=== PATIENT | male | born 1935 | race Caucasian/White ===

== ENCOUNTER 2018-09-27 18:09 | Observation (INO) ==
--- NOTE | 2018-09-27 18:54 | PROVIDER DOCUMENTATION ---
HPI-Male Problem - General Chief Complaint: Male Stated Complaint: MALE Time Seen by Provider: 09/27/18 18:48 Source: patient Allergies/Adverse Reactions: Patient Allergies Allergy/AdvReac Type Severity Reaction Status Date / Time diphenhydramine Allergy SWELLING Verified 09/27/18 18:21 [From Benadryl] Sulfa (Sulfonamide Allergy SWELLING Verified 09/27/18 18:21 Antibiotics) sulfamethoxazole Allergy SWELLING Verified 09/27/18 18:21 [From Bactrim] trimethoprim [From Bactrim] Allergy SWELLING Verified 09/27/18 18:21 Home Medications: Home Medication List Medication Instructions Recorded Confirmed Last Taken Type Amlodipine [Norvasc] 5 mg PO QHS 01/20/18 03/17/18 03/16/18 08:00 History Glyburide 2.5 mg PO DAILY 01/20/18 03/17/18 03/16/18 08:00 History Levothyroxine [Synthroid] 75 microgm PO DAILY 01/20/18 03/17/18 03/16/18 08:00 History SIMVAstatin [Zocor] 40 mg PO QHS 01/20/18 03/17/18 03/15/18 17:30 History Saxagliptin [Onglyza] 5 mg PO DAILY 01/20/18 03/17/18 03/16/18 08:00 History Valsartan [Diovan] 320 mg PO DAILY 01/20/18 03/17/18 03/16/18 08:00 History Tizanidine [Zanaflex] 4 mg PO DAILY PRN 03/16/18 03/17/18 03/15/18 20:00 History Hydrocodone/APAP 7.5 mg/325 mg 1 ea PO Q6H PRN PRN #15 tab 03/17/18 Unknown Rx [[place]-7.5] - History of Present Illness-Male Nature of Presenting Problem: 82 YOM PRESENTS WITH MULTIPLE COMPLAINTS URINARY RETENTION, LEG WEAKNESS BILATERALLY THAT HAS GOTTEN WORSE. HE DID HAVE AN EPIDURAL BLOCK TODAY BUT IT HAS NOT IMPROVED. Location of Complaint: reports: suprapubic Radiation: reports: none Quality of Pain: reports: fullness Severity in ED: reports: moderate Onset/Duration: reports: 24 hours ago Timing: reports: still present Context/Activities at Onset: reports: none Urinary Symptoms: reports: retention Sexual intercourse history: reports: Not Active Associated Symptoms: reports: none Associated Symptoms: reports: trouble walking Similar Symptoms Previously?: No Recently seen or treated by another doctor?: No Review of Systems - Adult - REVIEW OF SYSTEMS - ADULT Constitutional: reports: no symptoms reported. denies: see HPI, chills, fever, fatique, night sweats, weight gain, weight loss, other Eyes: reports: no symptoms reported. denies: see HPI, discharge, dry eyes, decreased vision, blurred vision, double vision, eye pain, redness, other Ears, Nose, Mouth & Throat: reports: no symptoms reported. denies: see HPI, ear discharge, ear pain, hearing loss, tinnitus, epistaxis, sinus problem, nose pain, loose teeth, mouth/dental pain, mouth swelling, hoarseness, throat pain, throat swelling, other Cardiovascular: reports: no symptoms reported. denies: see HPI, chest pain, edema, heart murmur, irregular heart rate, orthopnea, palpitations, poor circulation, PND, syncope, other Respiratory: reports: no symptoms reported. denies: see HPI, chronic cough, cough, dyspnea on exertion, excessive sputum production, hemoptysis, pleurisy, shortness of breath, wheezing, other Gastrointestinal: reports: no symptoms reported. denies: see HPI, abdominal pain, hematemesis, constipation, diarrhea, difficulty swallowing, frequent heartburn, nausea, poor appetite, rectal bleeding, vomiting, other Genitourinary: reports: urinary retention. denies: no symptoms reported, see HPI, dysuria, discharge, frequency, flank pain, frequent UTI's, hematuria, hesitency, incontinence, urgency, other Musculoskeletal: reports: muscle weakness. denies: no symptoms reported, see HPI, bone pain, back pain, frequent leg cramps, joint pain, joint swelling, muscle aches, neck pain, other Integumentary: reports: no symptoms reported. denies: see HPI, hives, hair loss, itching, mole changes, nail changes, rash, skin sores/ulcer, skin thickening, other Neurological: reports: no symptoms reported. denies: see HPI, ataxia, dizziness/vertigo, headache/migraines, loss of balance, numbness, paresthesia, seizure, slurred speech, syncope, tremors, other Psychiatric: reports: no symptoms reported. denies: see HPI, anxiety, anti- depressant use, alcohol/drug dependence, depression, emotional problems, insomnia, panic attacks, suicidal thoughts, other Endocrine: reports: no symptoms reported. denies: see HPI, change in skin pigment, excessive sweating, goiter, cold intolerance, heat intolerance, incr eased hunger, increased thirst, polyuria, other Hematologic/Lymphatic: reports: no symptoms reported. denies: see HPI, blood clots, easy bruising, low blood count, lymphedema, prolonged bleeding, swollen lymph nodes, transfusions, other Allergic/Immunologic: reports: no symptoms reported. denies: see HPI, allergic reactions, allergic rhinitis, asthma, eczema, food allergy, frequent infections, hay fever, hives, positive PPD, urticaria, other Past History - Adult - PAST MEDICAL HISTORY-ADULT Review of Records: reports: Old Records Reviewed, Nursing Assessment Review, Social history reviewed & non-contributory. Physical Exam-General - PHYSICAL EXAM-ADULT Initial Vital Signs Reviewed: Yes - CONSTITUTIONAL General Appearance: appears well, alert, no apparent distress - EYES Eyes: PERRL/EOMI - HEAD, EARS, NOSE, MOUTH & THROAT HENMT: normocephalic/atraumatic, moist mucous membranes, normal ENT inspection - NECK Neck: non-tender, full range of motion, supple - RESPIRATORY Respiratory: chest non-tender, lungs clear, normal breath sounds, no pleuratic chest pain, no respiratory distress, no accessory muscle use - CARDIOVASCULAR Cardiovascular: normal peripheral pulses, regular rate, rhythm, no edema, no gallop, no JVD, no murmur - GASTROINTESTINAL (ABDOMEN) Abdominal Exam: normal bowel sounds, non tender, soft - LYMPHATIC Lymphatic: no adenopathy - MUSCULOSKELETAL Back Exam: normal inspection, no CVA tenderness, no vertebral tenderness Extremity: non-tender. negative: normal range of motion, normal gait Peripheral Pulses: dorsalis-pedis (R): 2+, dorsalis-pedis (L): 2+ - SKIN Integumentary: normal color, normal turgor, warm/dry - NEUROLOGIC Neurologic: grossly normal - PSYCHIATRIC Psych/Mental Status: normal mood/affect, oriented x 3 Progress - PLAN OF CARE/RESULTS Progress/Plan/Lab Results: Vital Signs - 8 hr 09/27/18 18:17 Temperature 97.8 F Pulse Rate 103 H Respiratory Rate 16 Blood Pressure 113/67 O2 Sat by Pulse Oximetry 97 Laboratory Results - last 24 hr 09/27/18 09/27/18 09/27/18 19:00 20:11 20:11 WBC 4.48 L RBC 4.31 L Hgb 13.1 L Hct 36.2 L MCV 84.0 MCH 30.4 MCHC 36.2 RDW Std Deviation 13.6 Plt Count 170 MPV 10.2 Immature Gran % (Auto) 0.9 H Neut % (Auto) 93.5 H Lymph % (Auto) 3.8 L [place] % (Auto) 1.6 L Eos % (Auto) 0.2 Baso % (Auto) 0.0 Immature Gran # (Auto) 0.04 Neut # (Auto) 4.19 Lymph # (Auto) 0.17 L [place] # (Auto) 0.07 L Eos # (Auto) 0.01 Baso # (Auto) 0.00 Sodium 131 L Potassium 4.9 Chloride 98 Carbon Dioxide 21 L Anion Gap 12 BUN 21 Creatinine 0.8 Estimated GFR/1.73 m2 > 60 BUN/Creatinine Ratio 26 Glucose 228 H Calculated Osmolality 273 Calcium 8.4 L Urine Source CATH Urine Color YELLOW Urine Clarity VERY CLOUDY A Urine pH 5.0 Ur Specific [place] 1.020 Urine Protein 2+(100 mg/dL) A Urine Ketones TRACE Urine Blood 4+ Urine Nitrite NEGATIVE Urine Bilirubin NEGATIVE Urine Urobilinogen NORMAL Urine Microscopic RBC 10-20 A Urine WBC 1+ A Urine Microscopic WBC <10 Ur Epithelial Cells <10 Urine Crystals NONE SEEN Small Round Cells TRANSITIONAL PRESENT Urine Bacteria NEGATIVE Urine Casts NONE SEEN Urine Yeast NONE SEEN Urine Glucose TRACE(50 mg/dL) A Orders Category Date Time Status Ambulate Patient-Not Phys Thx ORDERED Care 09/27/18 20:53 Active BMP [BASIC METABOLIC PANEL] [CHEM] Stat Lab 09/27/18 20:11 Completed CBC WITH ELECTRONIC DIFF [HEME] Stat Lab 09/27/18 20:11 Completed UA NIMS W/REFLEX CULT PL [URINALYSIS] Stat Lab 09/27/18 19:00 Completed URINE CULTURE [RM] Routine Lab 09/27/18 19:35 Ordered Result Diagrams: 09/27/18 20:11 09/27/18 20:11 - CONSULTS/PCP/HOSPITALIST Notification #1 *Consult/PCP/Hospitalist*: DR CHEATAM Time Discussed: 21:16 Consult Disposition: Admit Departure - Departure Date of Disposition Decision: 09/27/18 Time of Disposition Decision: 21:16 DIAGNOSIS: Hyponatremia, Urinary retention Disposition: ADMITTED INPATIENT 09 Certified Medical Emergency: Emergent Condition: Stable Referrals and Follow-Ups: Kyler Ybarra MD [Primary Care Provider] - - Critical Care Note This patient required my direct & personal management of CC.: No Attestation - Physician/ NEELAM Attestation Patient care was provided by Advanced Practice Provider:: Yes Advanced Practice Provider:: Jessy Glass Advanced Practice Provider documentation review:: The Mid-level provider documentation, treatment plan and medical decision making was reviewed by the physician who agrees with all treatment and medical decision making by the MLP. The physician spent face to face time with patient:: No Advanced Practice Provider documentation review:: Supervising physician onsite and consulted in the evaluation and care of this patient. The physician did not have a face to face encounter with the patient.
[2018-09-27 19:17] LABS: BILIRUBIN URINE NEGATIVE (NEGATIVE)
[2018-09-27 19:18] LABS: BLOOD URINE 4+ (NEGATIVE); CLARITY VERY CLOUDY (CLEAR); COLOR YELLOW; KETONE URINE TRACE mg/dL (NEGATIVE); LEUKOCYTES URINE 1+ (NEGATIVE); NITRITE URINE NEGATIVE (NEGATIVE); PROTEIN URINE 2+(100 mg/dL) mg/dL (NEGATIVE); UROBILINOGEN URINE NORMAL
[2018-09-27 19:34] LABS: URINE SOURCE CATH
[2018-09-27 19:35] LABS: URINE BACTERIA NEGATIVE /HFP; URINE CAST NONE SEEN /LPF; URINE CRYSTAL NONE SEEN /HPF; URINE EPITHELIAL CELLS <10 /HPF (<10); URINE SMALL ROUND CELLS TRANSITIONAL PRESENT; URINE WBC <10 /HPF (<10); URINE YEAST NONE SEEN /HPF
[2018-09-27 20:18] LABS: EOS# 0.01 X1000 (0.0-0.7); EOS% 0.2 % (0.0-10.0); HEMATOCRIT 36.2 % (42.0-52.0); HEMOGLOBIN 13.1 g/dL (14.0-18.0); IMM GRAN# 0.04 X1000 (0.0-0.04); IMM GRAN% 0.9 % (0.0-0.5); LYMPH# 0.17 X1000 (1.2-3.4); LYMPH% 3.8 % (20.5-51.1); MCH 30.4 PG (27-31); MCHC 36.2 g/dL (33-37); MONO# 0.07 X1000 (0.11-0.59); MONO% 1.6 % (1.7-9.3); MPV 10.2 FL (7.4-10.4); NEUT# 4.19 X1000 (1.4-6.5); NEUT% 93.5 % (42.2-75.2); PLT 170 X1000 (130-400); RBC 4.31 XMIL (4.7-6.1); RDW 13.6 % (11.5-14.5); WBC 4.48 X1000 (4.8-10.8)
[2018-09-27 20:32] LABS: AGAP 12; BUN 21 mg/dL (8-22); CALCIUM 8.4 mg/dL (8.8-10.2); CHLORIDE 98 mmol/L (98-107); COSMO 273; CREATININE 0.8 mg/dL (0.7-1.2); ESTIMATED GFR > 60; GLUCOSE 228 mg/dL (70-104); POTASSIUM 4.9 mmol/L (3.5-5.1); SODIUM 131 mmol/L (136-145); TCO2 21 mmol/L (25-35)
[2018-09-27] MEDS ORDERED: NS 1,000 ML IV ONE (21:17)
[2018-09-28] MEDS: HUMALOG (PARKWAY) SUBQ SCH ×4 (07:00→21:49)
[2018-09-28 07:55] LABS: HEMOGLOBIN 12.7 g/dL (14.0-18.0); MCH 29.7 PG (27-31); MCHC 35.3 g/dL (33-37); MCV 84.3 FL (81-99); MPV 10.6 FL (7.4-10.4); RBC 4.27 XMIL (4.7-6.1); RDW 13.4 % (11.5-14.5); WBC 4.41 X1000 (4.8-10.8)
[2018-09-28] MEDS ORDERED: ZOFRAN IV PRN (08:26)
[2018-09-28] MEDS ORDERED: TYLENOL PO PRN (08:26)
[2018-09-28 08:31] LABS: AGAP 10; ALBUMIN 3.5 g/dL (3.5-5.0); ALKALINE PHOSPHATASE 63 U/L (32-122); BUN 18 mg/dL (8-22); CALCIUM 8.4 mg/dL (8.8-10.2); CHLORIDE 102 mmol/L (98-107); COSMO 275; CREATININE 0.6 mg/dL (0.7-1.2); ESTIMATED GFR > 60; GLUCOSE 161 mg/dL (70-104); GOT 12 U/L (10-34); GPT 8 U/L (10-44); MAGNESIUM 2.2 mg/dL (1.5-2.7); POTASSIUM 4.8 mmol/L (3.5-5.1); SODIUM 135 mmol/L (136-145); TCO2 22 mmol/L (25-35); TOTAL PROTEIN 5.5 g/dL (6.3-8.3)
[2018-09-28] MEDS ORDERED: NORVASC PO SCH (09:00)
[2018-09-28] MEDS: ROCEPHIN 1 GM in NS 50 ML IV SCH (09:29)
[2018-09-28] MEDS: ONGLYZA PO SCH (09:30)
[2018-09-28] MEDS: DIABETA PO SCH (09:31)
--- NOTE | 2018-09-28 11:03 | HISTORY AND PHYSICAL ---
CHIEF COMPLAINT: Can't use legs and can't urinate. HISTORY OF PRESENT ILLNESS: Mr. Khan is an 82-year-old male who carries a past medical history of type 2 diabetes, hyperlipidemia, hypertension, skin cancer, CVA, arthritis, and bladder cancer status post chemotherapy and radiation with Dr. Arnett, and transurethral resection of the bladder tumor, 2 to 5 cm in size by Dr. Elizabeth, as well as urethral dilatation. He reports over the last week he has been unable to use his legs, but before that, he continued to get weak over the past several weeks. He was walking with a walker. He is now unable to ambulate even with a walker. He has had a difficult time voiding over the past 2 to 3 weeks. Yesterday, he could not void on his own at all. He states he could feel the urge. He would stand there for 10 to 15 minutes. He could feel it start to release, and then just before it would come out, it would go back down again. The only relief he got was when he came to the ER, and they placed a Long catheter. He was found to be mildly hyponatremic with hematuria. He was initiated on IV fluids and IV antibiotics which we will continue, and check a CT of the abdomen and pelvis to see if the patient needs to be transported across town for neurology consult. PAST MEDICAL HISTORY: 1. Bladder cancer status post cystoscopy with urethral dilatation and transurethral resection of a bladder tumor by Dr. Elizabeth x2. 2. Arthritis. 3. Type 2 diabetes. 4. Hyperlipidemia. 5. Hypertension. 6. History of skin cancer. 7. History of CVA. PAST SURGICAL HISTORY: 1. Knee surgery. 2. Port placement. 3. Transurethral resection of bladder tumor and cystoscopy with urethral dilatation performed by Dr. Elizabeth x2. HOME MEDICATIONS: 1. Diovan 320 mg p.o. daily. 2. Norvasc 5 mg p.o. daily. 3. Glyburide 2.5 mg p.o. b.i.d. 4. Onglyza 5 mg p.o. daily. ALLERGIES: Benadryl causes swelling. Sulfa swelling. Bactrim swelling. FAMILY HISTORY: No malignancy or kidney stones. SOCIAL HISTORY: Former smoker, quit 30 years ago. No alcohol or illicit drug use. REVIEW OF SYSTEMS: Twelve-point review of systems complete and negative. The patient denies any headache, fever, chills, chest pain, shortness of breath, nausea, vomiting, or diarrhea. Pertinent positives per HPI. PHYSICAL EXAMINATION: VITAL SIGNS: Temperature is 98.7 degrees, heart rate 70, respirations 18, blood pressure 144/66, and O2 is 98% on room air. GENERAL: Mr. hKan is an 82-year-old male who is sitting up in the bed reading a book in no acute distress. HEENT: Atraumatic, normocephalic. PERRLA. Neck is supple. Trachea midline. CARDIOVASCULAR: S1, S2 appreciated. No murmurs, gallops, or rubs noted. RESPIRATORY: Lung sounds clear bilaterally. GI: Soft, nontender, and nondistended. Positive bowel sounds 4 quads. GENITOURINARY: Long. EXTREMITIES: Lower extremity is negative for edema. NEUROLOGIC: No focal deficits noted. DIAGNOSTIC DATA: Abdomen and pelvis CT currently pending. LABORATORY DATA: White count 4, hemoglobin and hematocrit 12 and 36, platelet count 179,000. Sodium initially 131, increased to 135, potassium 4.8, BUN 18, creatinine 0.6. Blood glucose is 161, magnesium 2.2. Urinalysis was negative for bacteria, negative for nitrates, 4+ blood, and 2+ protein. ASSESSMENT AND PLAN: 1. Urinary retention. The patient has had a dilatation in the past with Dr. Elizabeth. We will check a CT of the abdomen and pelvis and see if the patient needs to be transferred to [facility] for a urology consult. 2. Hyponatremia, improved with IV fluids. 3. Bilateral lower extremity weakness. We will consult physical therapy initially, and go from there. 4. Bladder cancer status post 2 transurethral resections of the bladder tumor as well as cystoscopy with urethral dilatation. This followed by Dr. Arnett. He finished his chemotherapy and radiation back in April of 2018. 5. Type 2 diabetes. Will continue home medications sliding scale with pattern blood sugars. 6. Hyperlipidemia. Continue statin. 7. Hypertension. Continue Norvasc. 8. History of skin cancer aware. 9. History of CVA aware. 10. Further recommendations to follow physician evaluation, laboratory and diagnostic data. Dictated by BALWINDER Newell for Kyler Ybarra MD cc: MD Alen Mcgarry MD Naveen T. Lobo, MD
--- NOTE | 2018-09-28 13:39 | Diag Imaging Result Doc PS360 ---
EXAM: CT ABDOMEN/PELVIS W/WO CONTRAS 09/28/2018 HISTORY: urinary retention/CA TECHNIQUE: This exam was performed using automated exposure control, adjustment of mA or kV according to patient size, and/or use of iterative reconstruction technique. COMMENT: The current examination is compared with 07/18/2018. There is a tiny pleural-based nodule in the right lower lobe on image one. There is a tiny nodule on image 26 in the right lower lobe. There is a nodule in the posterior costophrenic sulcus of the left lower lobe on image 88. These nodules are not as clearly demonstrated on the previous study largely due to atelectasis and pleural fluid collections bilaterally. They were not present on the abdominal study of 01/04/2018. There is a cyst in the left hepatic lobe which has not changed since the previous study. There are granulomata in the spleen. There are calcifications in the aorta and its branches. This is particularly notable in the renal vessels bilaterally. There is a Long catheter in the urinary bladder. The bladder is not distended and there is some apparent stranding in the fat around the bladder. There is no evidence of hydronephrosis on either side. The adrenal glands and pancreas are stable in appearance. There is no evidence of bowel obstruction. There is a fair amount of stool in the colon. Pelvis: There is diverticulosis in the sigmoid colon. There is stool in the rectum. There are degenerative disc and facet changes in the lumbar spine. IMPRESSION: No evidence of obstructive uropathy. Atherosclerotic changes. Constipation and diverticulosis coli. Cystitis. Mucosal Thickening in the urinary bladder similar in appearance to 07/18/2018. Resolution of pleural effusions and atelectasis in the lung bases. Pulmonary nodules, possible pulmonary metastases. Electronically signed by Andrew Eastman 09/28/2018 1:36 PM
--- NOTE | 2018-09-28 14:03 | HISTORY AND PHYSICAL ---
ADDENDUM: Patient seen and examined by myself. Full note dictated and discussed with nurse practitioner. Unfortunately, Mr. Khan has been chronically ill with back pain and lower extremity pain for the last several months. He just recently had injection. Notes that nothing seems to be helping. He has continued to get weaker in his lower extremities. Now he has developed some urinary retention and having difficulty urinating. Had to have a Long placed while he was in the ER. On exam, the patient is awake, alert. He is able to move his extremities without any difficulty against gravity, but notes his legs are too weak for him to stand. PLAN: We will admit patient to the hospital, get physical therapy involved. Certainly expect he may have a urinary infection given his urinary retention. We will place him on antibiotics and will follow. cc: Kyler Ybarra MD
[2018-09-28] MEDS: NS 1,000 ML IV SCH (14:28)
[2018-09-29] MEDS: NORCO-5 PO PRN ×2 (03:06→08:51)
[2018-09-29] MEDS: NS 1,000 ML IV SCH (03:09)
[2018-09-29] MEDS: HUMALOG (PARKWAY) SUBQ SCH ×3 (06:09→16:06)
[2018-09-29 08:00] VITALS: BP 144/42
[2018-09-29] MEDS ORDERED: PERCOCET-5 PO PRN (08:44)
[2018-09-29] MEDS: ONGLYZA PO SCH (08:51)
[2018-09-29] MEDS: DIABETA PO SCH (08:51)
[2018-09-29] MEDS: ROCEPHIN 1 GM in NS 50 ML IV SCH (08:52)
[2018-09-29] MEDS ORDERED: NORVASC PO SCH (09:00)
[2018-09-29] MEDS ORDERED: DIOVAN PO SCH (09:00)
--- NOTE | 2018-09-29 09:26 | Diag Imaging Result Doc PS360 ---
EXAM: CT THORAX W/CONTRAST HISTORY: assess pulmonary nodules TECHNIQUE: CT chest with intravenous contrast COMPARISON: Abdomen pelvis CT from 07/18/2018 and 09/28/2018 FINDINGS: Resolution of the prior small pleural effusions. Resolution of the prior pericardial effusion. No thoracic aortic aneurysm or dissection. Prominent atherosclerosis. There are small calcified mediastinal and right hilar lymph nodes with scattered granuloma. Mild emphysema. Tiny pleural-based nodular density along the diaphragmatic surface on the left on image 91. No change in the tiny nodular densities on the right. No lung mass. No consolidation. There is a right sided portacatheter. No pneumothorax. IMPRESSION: 1.There is evidence of a prior granulomatous infection 2.Severe atherosclerosis 3.Tiny nonspecific pulmonary nodular densities This exam was performed using automated exposure control, adjustment of mA or kV according to patient size, and/or use of iterative reconstruction technique. Electronically signed by Antonio Fuchs 09/29/2018 9:24 AM
--- NOTE | 2018-09-29 14:07 | PROGRESS NOTE ---
DATE: 09/28/2018 SUBJECTIVE: Patient notes he is feeling better. He states he is able to walk with a walker. He states he wants to go home. He does not want to stay in the hospital any longer. OBJECTIVE: Vital Signs: Temperature 97.5, pulse 77, respiratory 18, and BP 151/67. General: Patient is awake and alert. He is sitting on the side of the bed. He is currently in no respiratory distress. HEENT: Normocephalic. Neck: Supple. Cardiovascular: Regular rate. Lungs: Chest clear and nonlabored. Abdomen: Soft. Extremities: Moves all extremities. ASSESSMENT: 1. Urinary retention. Currently, he has a Long catheter. We will attempt to bladder train. Most likely, I believe he will have to go home with his Long as he has done this in the past. 2. History of bladder cancer. 3. Generalized weakness. 4. Hyponatremia resolved. 5. Bilateral lower extremity weakness. 6. Type 2 diabetes. 7. Hypertension. PLAN: We will continue patient in the hospital. Continue physical therapy. We will attempt to bladder train, and hopefully remove his Long. If not, most likely will discharge home later this evening with a Long. Of note, the patient does have history of cancer. He was scheduled for CT next week. This was repeated yesterday, and we are going to check CT of his chest today as there is some question as to whether he may have pulmonary nodules. He does have an outpatient appointment already set up with Hematology Dr. Arnett. cc: Kyler Ybarra MD
[2018-09-29] MEDS ORDERED: ELAVIL PO SCH (21:00)
--- NOTE | 2018-09-30 03:39 | DISCHARGE SUMMARY ---
ADMISSION DATE: 09/28/2018 DISCHARGE DATE: 09/29/2018 CONSULTATIONS: None. PERTINENT PROCEDURES: 1. Telephone consultation Dr. Elizabeth with Urology. 2. CT of abdomen and pelvis, no evidence of obstructive uropathy, atherosclerotic changes, constipation and diverticulosis coli, cystitis, mucosal thickening in the urinary bladder similar to appearance on 07/18/2018, resolution of pleural effusions and atelectasis in the lung bases, pulmonary nodules and possible pulmonary metastasis. 3. Chest CT, evidence of prior granulomatous infection, severe atherosclerosis, tiny nonspecific pulmonary nodular densities. DISCHARGE DIAGNOSES: 1. Acute urinary retention status post Long catheter placement with great flow. The patient has had dilatation in the past with Dr. Elizabeth. We did check a CT of the abdomen and pelvis. There was no obstructive urology. I went over the results with Dr. Elizabeth over the phone. He believes at some point that the patient will need another procedure. However, he was hesitant in the past. He recommends that we keep his Long catheter over the weekend and send him home with Home Health and physical therapy and have him follow up in his office on Wednesday morning for catheter removal. 2. Bilateral lower extremity weakness. We have had the patient working with Physical Therapy. He does not wish to go to rehab. He wants to go home with Home Health and physical therapy. 3. Hyponatremia, improved with intravenous hydration. 4. Bladder cancer status post 2 transurethral resections of the bladder tumor as well as cystoscopy and urethral dilatation, and he finished his chemotherapy and radiation back in April with Dr. Arnett. He has a followup appointment at the end of this month that we encouraged him to keep. 5. Type 2 diabetes. Continue home medications. 6. Hyperlipidemia. Continue statin. 7. Hypertension. Continue Norvasc. 8. History of skin cancer. Aware. 9. History of cerebrovascular accident. Aware. 10. Pulmonary nodules that was seen on his abdomen and pelvis CT. We did a followup CT scan that shows no change in prior studies of his pulmonary nodules. We will let him follow up with his primary oncologist to go over these results. HOSPITAL COURSE: Briefly, Mr. Khan is an 82-year-old male who carries a past medical history of type 2 diabetes, hyperlipidemia, hypertension, skin cancer, CVA, arthritis, bladder cancer status post chemotherapy and radiation with Dr. Arnett and a transurethral resection of the bladder tumor by Dr. Elizabeth as well as urethral dilatation. He came to the ER because he was not able to void. He reported over the last week he had been unable to use his legs, but before that he had been getting progressively weaker. He was walking with a walker and he is now unable to ambulate even with a walker. He did report difficulty at times voiding over the past 2 to 3 weeks. However, yesterday he could not void on his own at all. The only relief he got was when they placed a Long catheter. He was initially placed on IV fluids and IV antibiotics. We did a CT of the abdomen and pelvis. It did not show any obstructive uropathy. I spoke with Dr. Elizabeth over the phone. He recommends to keep the Long catheter over the weekend and he will follow up with him in the office on Wednesday. We also had him evaluated by Physical Therapy. He was able to use a front wheel walker with assistance. We will discharge him home with Home Health as well as physical therapy. He declined rehab. VITAL SIGNS: At time of his discharge, temperature was 98 degrees, heart rate 85, respirations 18, blood pressure 144/42, O2 is 99% on room air. DISCHARGE DIET: Regular. DISCHARGE MEDICATIONS: 1. Diovan 320 mg p.o. daily. 2. Glyburide 2.5 mg p.o. daily. 3. Norvasc 5 mg p.o. daily. 4. Onglyza 5 mg p.o. daily. FOLLOWUP: Mr. Khan is being discharged home with Home Health and physical therapy. He will need to follow up with Dr. Elizabeth on Wednesday for Long catheter removal and follow up with his primary care provider, Dr. Kyler Ybarra, in 1 to 2 weeks. He can return to the ED or call 911 for any worsening of symptoms. Dictated by BALWINDER Newell for Kyler Ybarra MD cc: MD Alen Mcgarry MD Naveen T. Lobo, MD
== END 2018-09-29 16:52 | disposition home health service (06) ==
LOC: P.ED 18:09 → P.MEDSURG 18:09
PROVIDERS: ATTEND Family Medicine
CPT/HCPCS: 71260; 74178; 80048; 80053; 81001; 82948; 83735; 85025; 85027; 87088; 97163; A9270; J0696; J1815; J7030; Q9967; XXXXX

== ENCOUNTER 2018-12-04 17:51 | Inpatient (IN) ==
[~2018-12-04 17:51] MED LIST: D50W SYRINGE ONE; NS 1,000 ML IV ONE; NS 500 ML IV ONE
[2018-12-04] MEDS ORDERED: D50W SYRINGE IV ONE ×2 (17:55→21:21)
[2018-12-04 18:02] LABS: BASO# 0.02 X1000 (0.0-0.2); BASO% 0.2 % (0.0-0.8); EOS# 0.09 X1000 (0.0-0.7); HEMATOCRIT 30.4 % (42.0-52.0); HEMOGLOBIN 10.2 g/dL (14.0-18.0); IMM GRAN# 0.09 X1000 (0.0-0.04); LYMPH# 0.66 X1000 (1.2-3.4); LYMPH% 7.5 % (20.5-51.1); MCH 31.1 PG (27-31); MCHC 33.6 g/dL (33-37); MCV 92.7 FL (81-99); MONO# 0.93 X1000 (0.11-0.59); MONO% 10.6 % (1.7-9.3); MPV 10.2 FL (7.4-10.4); NEUT# 6.99 X1000 (1.4-6.5); NEUT% 79.7 % (42.2-75.2); PLT 217 X1000 (130-400); RBC 3.28 XMIL (4.7-6.1); RDW 13.5 % (11.5-14.5); WBC 8.78 X1000 (4.8-10.8)
[2018-12-04 18:33] LABS: AGAP 9; ALKALINE PHOSPHATASE 61 U/L (32-122); BUN 24 mg/dL (8-22); CALCIUM 7.4 mg/dL (8.8-10.2); CHLORIDE 101 mmol/L (98-107); COSMO 269; CREATININE 0.8 mg/dL (0.7-1.2); ESTIMATED GFR > 60; GLUCOSE 41 mg/dL (70-104); GOT 18 U/L (10-34); GPT 8 U/L (10-44); POTASSIUM 3.8 mmol/L (3.5-5.1); SODIUM 134 mmol/L (136-145); TCO2 24 mmol/L (25-35); TOTAL PROTEIN 4.9 g/dL (6.3-8.3)
--- NOTE | 2018-12-04 18:43 | PROVIDER DOCUMENTATION ---
This chart was entered by Maida Hughes Scribe, acting as scribe for Darío Solomon MD. HPI-General Adult - General Chief Complaint: Low Blood Sugar Stated Complaint: HYPOGLYCEMIA Time Seen by Provider: 12/04/18 18:34 Source: patient Allergies/Adverse Reactions: Patient Allergies Allergy/AdvReac Type Severity Reaction Status Date / Time diphenhydramine Allergy SWELLING Verified 10/27/18 09:33 [From Benadryl] Sulfa (Sulfonamide Allergy SWELLING Verified 10/27/18 09:33 Antibiotics) sulfamethoxazole Allergy SWELLING Verified 10/27/18 09:33 [From Bactrim] trimethoprim [From Bactrim] Allergy SWELLING Verified 10/27/18 09:33 gabapentin [From Neurontin] AdvReac Unknown Verified 10/27/18 09:33 Home Medications: Home Medication List Medication Instructions Recorded Confirmed Last Taken Type Amlodipine [Norvasc] 5 mg PO DAILY 01/20/18 12/04/18 10/26/18 09:00 History Glyburide 2.5 mg PO DAILY 01/20/18 12/04/18 10/26/18 09:00 History Saxagliptin [Onglyza] 5 mg PO DAILY 01/20/18 12/04/18 10/26/18 09:00 History Valsartan [Diovan] 320 mg PO QAM 01/20/18 12/04/18 10/26/18 09:00 History Pregabalin [Lyrica] 75 mg PO BID 10/24/18 12/04/18 10/26/18 21:00 History Tamsulosin [Flomax] 0.4 mg PO DAILY #14 cap 10/27/18 12/04/18 Unknown Rx - History of Present Illness -Gen Adult Nature of Presenting Problems: 83 yowm presents w/family to ed w/cc pt arrived via ems due to confusion, and low blood pressure. pt has hx of bladder cancer, had 38 radiation rtx and is done w/chemo and radiation. pt has recently been d/c from [facility] for low bp, family sts hsv couldn't figure out why bp was low. pt was home today and got pt a peanut butter donut, pt ate one and asked for another and when came back pt was ams, confused and not responding. pt has bilat LE weakness, uses wheelchair to ambulate. pt has chronic huggins cath in place.pt has been coughing. denies nvd, chills and sob. pt is a&ox3 in er and all vitals are good. pt has allergy to benadryl and bactrim. Location of Pain/Injury: reports: none Pain Radiation: reports: no radiation Quality of Pain: reports: none Onset/Duration: reports: just prior to arrival Timing: reports: gone now Context/Activities at Onset: reports: none Review of Systems - Adult - REVIEW OF SYSTEMS - ADULT Constitutional: reports: no symptoms reported. denies: chills, fever, fatique Eyes: reports: no symptoms reported Ears, Nose, Mouth & Throat: reports: no symptoms reported Cardiovascular: reports: no symptoms reported Respiratory: reports: see HPI, cough. denies: excessive sputum production, shortness of breath, wheezing Gastrointestinal: reports: no symptoms reported Genitourinary: reports: no symptoms reported Musculoskeletal: reports: no symptoms reported, see HPI, muscle weakness (bilat le). denies: back pain, frequent leg cramps, neck pain Integumentary: reports: no symptoms reported Neurological: reports: see HPI, other (ams and confusion). denies: dizziness/vertigo, headache/migraines, slurred speech Psychiatric: reports: no symptoms reported Endocrine: reports: no symptoms reported Hematologic/Lymphatic: reports: no symptoms reported Allergic/Immunologic: reports: no symptoms reported All Other Systems: Reviewed and Negative Past History - Adult - PAST MEDICAL HISTORY-ADULT Review of Records: reports: Old Records Reviewed, Nursing Assessment Review, Medications Reviewed, Social history reviewed & non-contributory. Major Childhood Illnesses: reports: denies history Cardiovascular: reports: HTN Respiratory: reports: denies history Gastrointestinal: reports: denies history Obstetrical/Gynecological: reports: denies history Genitourinary: reports: cancer (bladder) Musculoskeletal: reports: denies history Neurological: reports: TIA Endocrine/Immune: reports: Diabetes Other Conditions: reports: denies history - PRIOR SURGERIES/PROCEDURES Surgical/Procedure History: reports: other - IMMUNIZATION STATUS Childhood Immunizations: See Nurse Assessment Flu Vaccine: See Nurse Assessment - FAMILY HISTORY Family History: reviewed, not pertinent - SOCIAL HISTORY Smoking: other (former) Substance Use: none/never Physical Exam-General - PHYSICAL EXAM-ADULT Initial Vital Signs Reviewed: Yes - CONSTITUTIONAL General Appearance: appears well, alert, no apparent distress. negative: cachetic, slow to respond, obtunded - EYES Eyes: PERRL/EOMI, pink conjunctivae - HEAD, EARS, NOSE, MOUTH & THROAT HENMT: normocephalic/atraumatic, moist mucous membranes, normal ENT inspection - NECK Neck: non-tender, full range of motion, supple, normal inspection - RESPIRATORY Respiratory: chest non-tender, lungs clear, normal breath sounds - CARDIOVASCULAR Cardiovascular: normal peripheral pulses, regular rate, rhythm - GASTROINTESTINAL (ABDOMEN) Abdominal Exam: normal bowel sounds, non tender, soft - LYMPHATIC Lymphatic: no adenopathy - MUSCULOSKELETAL Back Exam: normal inspection, no CVA tenderness, no vertebral tenderness Extremity: normal range of motion, non-tender, normal inspection Peripheral Pulses: dorsalis-pedis (R): 2+, dorsalis-pedis (L): 2+ - SKIN Integumentary: normal color, normal turgor, warm/dry - NEUROLOGIC Neurologic: secy II-XII nml as tested, grossly normal, no motor/sensory deficits. negative: aphasia, facial droop, focal weakness, motor weakness - PSYCHIATRIC Psych/Mental Status: normal mood/affect, normal thought content, normal thought process, oriented x 3. negative: disoriented x 3 Progress - PLAN OF CARE/RESULTS Progress/Plan/Lab Results: Vital Signs - 8 hr 12/04/18 17:47 Pulse Rate 81 Respiratory Rate 18 Blood Pressure 96/45 O2 Sat by Pulse Oximetry 97 Laboratory Results - last 24 hr 12/04/18 12/04/18 12/04/18 17:50 17:50 17:55 WBC 8.78 RBC 3.28 L Hgb 10.2 L Hct 30.4 L MCV 92.7 MCH 31.1 H MCHC 33.6 RDW Std Deviation 13.5 Plt Count 217 MPV 10.2 Immature Gran % (Auto) 1.0 H Neut % (Auto) 79.7 H Lymph % (Auto) 7.5 L [place] % (Auto) 10.6 H Eos % (Auto) 1.0 Baso % (Auto) 0.2 Immature Gran # (Auto) 0.09 H Neut # (Auto) 6.99 H Lymph # (Auto) 0.66 L [place] # (Auto) 0.93 H Eos # (Auto) 0.09 Baso # (Auto) 0.02 Sodium 134 L Potassium 3.8 Chloride 101 Carbon Dioxide 24 L Anion Gap 9 BUN 24 H Creatinine 0.8 Estimated GFR/1.73 m2 > 60 BUN/Creatinine Ratio 30 Glucose 41 L POC Glucose 42 L D Calculated Osmolality 269 Calcium 7.4 L Total Bilirubin 0.20 AST 18 ALT 8 L Alkaline Phosphatase 61 Total Protein 4.9 L Albumin 3.0 L Globulin 2.0 Albumin/Globulin Ratio 2.0 Orders Category Date Time Status Core Temperature ORDERED Care 12/04/18 17:49 Active FSBS/Accucheck Result NOW Care 12/04/18 17:47 Active Huggins Cath Insertion ORDERED Care 12/04/18 17:48 Active Intake and Output-Strict ORDERED Care 12/04/18 17:48 Active Notify MD/PA/BALWINDER for exam NOW Care 12/04/18 17:48 Active Repeat Vital Signs .Blood Pressure Care 12/04/18 17:48 Active Repeat Vital Signs .Heart Rate Care 12/04/18 17:48 Active Repeat Vital Signs .Oxygen Saturation Care 12/04/18 17:48 Active Repeat Vital Signs .Respiratory Rate Care 12/04/18 17:48 Active Repeat Vital Signs .Temp Care 12/04/18 17:48 Active CHEST-PORTABLE [RAD] Stat Exams 12/04/18 17:[address] HEAD W/O CONTRAST [CT] Stat Exams 12/04/18 17:47 Ordered CBC WITH ELECTRONIC DIFF [HEME] Stat Lab 12/04/18 17:50 Completed CMP [COMPREHENSIVE METABOLIC PANEL] [CHEM] Stat Lab 12/04/18 17:55 Completed LACTATE, PLASMA [CHEM] Timed Lab 12/04/18 18:[address] W/POSS RFLX CULT [URINALYSIS] Stat Lab 12/04/18 17:50 Uncollected 0.9% Sodium Chloride Inj [Ns] 1,000 ml Med 12/04/18 17:48 Discontinued IV As Directed mls/hr 0.9% Sodium Chloride Inj [Ns] 500 ml Med 12/04/18 17:48 Discontinued IV 999 mls/hr Dextrose 50% Syringe [D50w Syringe] Med 12/04/18 17:50 Discontinued 50 ml .ROUTE .STK-MED ONE Dextrose 50% Syringe [D50w Syringe] Med 12/04/18 17:55 Discontinued 50 ml IV NOW ONE Result Diagrams: 12/04/18 17:50 12/04/18 17:55 - CONSULTS/PCP/HOSPITALIST Notification #1 *Consult/PCP/Hospitalist*: marsha #2 Consult: lourdes ybarra Time Discussed: 20:55 Departure - Departure Date of Disposition Decision: 12/04/18 Time of Disposition Decision: 21:00 DIAGNOSIS: Urinary tract infection Qualifiers: Urinary tract infection type: site unspecified Hematuria presence: with hematuria Qualified Code(s): N39.0 - Urinary tract infection, site not specified; R31.9 - Hematuria, unspecified Pneumonia Qualifiers: Pneumonia type: due to unspecified organism Laterality: right Lung location: lower lobe of lung Qualified Code(s): J18.1 - Lobar pneumonia, unspecified organism Disposition: ADMITTED INPATIENT 09 Certified Medical Emergency: Emergent Condition: Stable Referrals and Follow-Ups: Kyler Ybarra MD [Primary Care Provider] - - Critical Care Note This patient required my direct & personal management of CC.: No Attestation - Physician/ NEELAM Attestation Patient care was provided by Advanced Practice Provider:: No The physician spent face to face time with patient:: Yes Advanced Practice Provider documentation review:: Supervising physician onsite and consulted in the evaluation and care of this patient. The physician did have a face to face encounter with the patient. This chart was documented by the indicated scribe, (Maida Hughes Scribe) and accurately reflects the services I performed and decisions made by me, Darío Solomon MD, as attested by the provider's signature.
[2018-12-04 18:55] LABS: BILIRUBIN URINE NEGATIVE (NEGATIVE); BLOOD URINE 4+ (NEGATIVE); GLUCOSE URINE NEGATIVE (NEGATIVE); KETONE URINE TRACE mg/dL (NEGATIVE); LEUKOCYTES URINE 2+ (NEGATIVE); NITRITE URINE NEGATIVE (NEGATIVE); PROTEIN URINE 2+(100 mg/dL) mg/dL (NEGATIVE); UROBILINOGEN URINE 1 mg/dL
[2018-12-04 18:56] LABS: CLARITY VERY CLOUDY (CLEAR); COLOR YELLOW
[2018-12-04 18:58] LABS: URINE WBC TNTC /HPF (<10)
[2018-12-04 18:59] LABS: URINE BACTERIA 1+ /HFP; URINE CAST NONE SEEN /LPF; URINE CRYSTAL NONE SEEN /HPF; URINE EPITHELIAL CELLS <10 /HPF (<10); URINE SOURCE CATH; URINE YEAST NONE SEEN /HPF
--- NOTE | 2018-12-04 19:52 | Diag Imaging Result Doc PS360 ---
CT HEAD W/O CONTRAST - 12/04/2018 INDICATION: AMS COMPARISON: 11/14/2018 FINDINGS: There is mild diffuse cerebral atrophy. No intracranial mass or hemorrhage. The skull is intact. The sinuses are clear. IMPRESSION: No acute disease or change from prior. This exam was performed using automated exposure control, adjustment of mA or kV according to patient size, and/or use of iterative reconstruction technique Electronically signed by Luis Lambert 12/04/2018 7:50 PM
--- NOTE | 2018-12-04 20:03 | Diag Imaging Result Doc PS360 ---
CHEST-PORTABLE - 12/04/2018 INDICATION: hypotension,AMS COMPARISON: 03/17/2018 FINDINGS: Stable right chest port in good position. There is faint right infrahilar infiltrate in the lung base. The left lung is clear. Heart size is normal. No pneumothorax or pleural effusion. IMPRESSION: Faint infiltrate in the medial right lung base which may suggest pneumonia. Electronically signed by Luis Lambert 12/04/2018 8:00 PM
[2018-12-04] MEDS ORDERED: ZOSYN 3.375 GM in NS 50 ML IV ONE (20:56)
[2018-12-04] MEDS ORDERED: D50W SYRINGE ONE (21:17)
[2018-12-04] MEDS ORDERED: D5 NS 1,000 ML IV ONE ×2 (21:22→23:29)
[2018-12-04] MEDS ORDERED: D50W SYRINGE IV PRN (21:25)
--- NOTE | 2018-12-04 22:39 | ED EKG INTERP ---
This chart was entered by Maida Hughes Scribe, acting as scribe for Darío Solomon MD. EKG Interpretation - EKG Time of EKG reading by physician:: 19:44 EKG Read and Signed by:: Darío Solomon EKG Interpretation (*Must complete 3 of following elements*): Abnormal Rate: 62 Rhythm: SR w/1st degree AV block [place]: normal QRS: LBB ST Wave: normal Attestation - Physician/ NEELAM Attestation Patient care was provided by Advanced Practice Provider:: No The physician spent face to face time with patient:: Yes Advanced Practice Provider documentation review:: Supervising physician onsite and consulted in the evaluation and care of this patient. The physician did have a face to face encounter with the patient. This chart was documented by the indicated scribe, (Maida Hughes Scribe) and accurately reflects the services I performed and decisions made by me, Darío Solomon MD, as attested by the provider's signature.
[2018-12-05] MEDS ORDERED: TYLENOL PO PRN (01:40)
[2018-12-05] MEDS: ZOSYN 3.375 GM in NS 50 ML IV SCH ×4 (03:57→20:45)
--- NOTE | 2018-12-05 06:43 | EKG Report ---
Test Performed on : 12/04/2018 7:43:38 PM Test Reason : cp Blood Pressure : / mmHG Vent. Rate : 062 BPM Atrial Rate : 062 BPM P-R Int : 226 ms QRS Dur : 156 ms QT Int : 492 ms P-R-T Axes : 069 -01 125 degrees QTc Int : 499 ms Sinus rhythm. with 1st degree AV block. Left bundle branch block Abnormal ECG When compared with ECG of 14-NOV-2018 10:59, (Unconfirmed) premature ventricular complexes. are no longer present Unconfirmed Result
[2018-12-05] MEDS: PERCOCET-5 PO PRN ×2 (08:59→20:35)
[2018-12-05] MEDS: LYRICA PO SCH ×2 (09:00→20:35)
[2018-12-05] MEDS: FLOMAX PO SCH ×2 (09:01→20:35)
[2018-12-05] MEDS: NORVASC PO SCH (09:01)
[2018-12-05] MEDS: DIOVAN PO SCH (09:06)
--- NOTE | 2018-12-05 12:46 | HISTORY AND PHYSICAL ---
CHIEF COMPLAINT: Low blood sugar. HISTORY OF PRESENT ILLNESS: This is an 83-year-old gentleman with a history of bladder cancer, diabetes mellitus type 2, hypertension. He presents to the emergency room via EMS after being found altered with a low blood sugar. Evidently, according to the chart, blood sugar was 42 on arrival to the emergency room for which he was given 1 ampule of D-50 twice. A drip of D-5-W was started with blood sugars increasing to the 70 to 80 range. PAST MEDICAL HISTORY: 1. Diabetes mellitus type 2. 2. Hyperlipidemia. 3. Hypertension. 4. Bladder cancer, status post transurethral resection of the bladder tumor by Dr. Elizabeth x2, and he is recently status post chemotherapy and XRT. PAST SURGICAL HISTORY: 1. TURBT x2. 2. Port placement. 3. Knee surgery. ALLERGIES: Benadryl, sulfa, and Bactrim. SOCIAL HISTORY: He denies alcohol or illicit drug use. He smoked but quit over 30 years ago. HOME MEDICATIONS: A list will be obtained by the nursing staff, and once verified, we will review and restart as appropriate. REVIEW OF SYSTEMS: Discussed with the patient with pertinent positives stated in the HPI. He denied any syncope or dizziness, any chest pain, palpitations, any shortness of breath, cough, fever, chills, any nausea, vomiting, diarrhea, constipation, black or bloody vomitus or stools. PHYSICAL EXAMINATION: GENERAL: This is an 83-year-old gentleman who is sitting up in the bed in no distress in no distress. VITAL SIGNS: Blood pressure is 167/55 with a heart rate of 61, respirations 18, temperature 97.4 degrees oral, with room air saturations 99% to 100%. HEENT: Head is normocephalic, atraumatic. Mucous membranes are moist. NECK: Supple with trachea midline. CARDIOVASCULAR: Regular rate and rhythm. S1 and S2 are appreciated. Calves are nontender, bilateral. He does have bilateral lower extremity edema with peripheral pulses palpable x4 extremities. PULMONARY: Breath sounds are clear. No increased work of breathing noted. Chest rises and falls symmetric with respiration. GASTROINTESTINAL: Abdomen is soft, nontender, nondistended. Bowel sounds in all 4 quadrants. GENITOURINARY: He has a Long that is patent to bedside bag with cloudy yellow urine draining. NEUROLOGIC: He is alert. He is oriented and follows commands. SKIN: Warm and dry. He is noted to have a wound to his right lateral heel. This is a stage II pressure ulcer, as well as to his sacrum. DIAGNOSTIC DATA: Labs, WBC is 8.7 with hemoglobin 10.2, hematocrit 34.4, and platelets 217,000. Sodium 134, potassium 3.8, BUN 24, creatinine 0.8 with a glucose of 41. Urinalysis reveals 10 to 20 microscopic red blood cells, too numerous to count microscopic white blood cells with less than 10 epithelial cells, 1+ bacteria. Chest x-ray revealed faint infiltrate in the right medial lobe, which may suggest pneumonia. CT of the head revealed no acute disease. ASSESSMENT AND PLAN: 1. Hypoglycemia. We will hold the patient's glyburide. Continue every 4 hours blood sugars and continue to monitor. 2. Diabetes mellitus type 2. We will hold all antidiabetic medications as long as the patient is hypoglycemic. We will continue to check every 4 hours blood sugars. 3. Right middle lobe pneumonia. Blood cultures were obtained. We will continue Zosyn for antibiotic coverage and any further antibiotics will be culture driven. 4. Hypothyroid. We will check a thyroid stimulating hormone and continue his home medication. 5. History of bladder cancer with chronic indwelling Long. Urinalysis is consistent with chronic Long. We will await urine culture, and if in fact he does have a bacteria, then antibiotics will be culture driven. 6. Hypertension. We will continue his home medications as appropriate. 7. Decubitus right lateral heel and sacral area. We will consult wound therapy. 8. Chronic lower extremity weakness. The patient does use a wheelchair to ambulate, although we will get physical therapy to evaluate. 9. Altered mental status. This is very likely secondary to his hypoglycemia, but we will continue with neurological checks every 4 hours. 10. We will check a CBC with differential, a BMP in the morning. 11. We will consult social worker delinquency prevention for any discharge needs. Plan discussed with Dr Ybarra. Further treatments pending hospital course. Dictated by BALWINDER Ngo for Kyler Ybarra MD cc: BALWINDER Ngo MD [facility]
--- NOTE | 2018-12-05 19:32 | HISTORY AND PHYSICAL ---
ADDENDUM: Patient seen and examined by myself. Full note dictated and discussed with nurse practitioner. Patient does take Glimepiride at home, which is likely the cause of his acute hypoglycemic episodes. We are going to hold this, admit him to the hospital, follow his blood pressures, do other labs. He appears to have a urinary tract infection as well. We are going to put him on antibiotics. Further orders as needed. cc: Kyler Ybarra MD
[2018-12-05] MEDS: ZOCOR PO SCH (20:35)
[2018-12-05] MEDS ORDERED: NS 500 ML ONE (21:55)
[2018-12-06] MEDS: ZOSYN 3.375 GM in NS 50 ML IV SCH ×4 (04:38→10:22)
[2018-12-06] MEDS: SYNTHROID PO SCH (06:12)
[2018-12-06 06:56] LABS: HEMATOCRIT 30.7 % (42.0-52.0); HEMOGLOBIN 10.2 g/dL (14.0-18.0); MCH 30.6 PG (27-31); MCHC 33.2 g/dL (33-37); MCV 92.2 FL (81-99); MPV 10.5 FL (7.4-10.4); RBC 3.33 XMIL (4.7-6.1); RDW 13.3 % (11.5-14.5); WBC 4.4 X1000 (4.8-10.8)
[2018-12-06 07:35] LABS: AGAP 8; ALBUMIN 2.9 g/dL (3.5-5.0); ALKALINE PHOSPHATASE 59 U/L (32-122); BUN 7 mg/dL (8-22); CALCIUM 7.4 mg/dL (8.8-10.2); CHLORIDE 107 mmol/L (98-107); COSMO 276; CREATININE 0.6 mg/dL (0.7-1.2); ESTIMATED GFR > 60; GLUCOSE 102 mg/dL (70-104); GOT 16 U/L (10-34); GPT 8 U/L (10-44); MAGNESIUM 2.1 mg/dL (1.5-2.7); POTASSIUM 4.1 mmol/L (3.5-5.1); SODIUM 139 mmol/L (136-145); TCO2 23 mmol/L (25-35); TOTAL PROTEIN 4.4 g/dL (6.3-8.3)
[2018-12-06] MEDS: FLOMAX PO SCH ×2 (08:25→21:18)
[2018-12-06] MEDS: LYRICA PO SCH ×2 (08:25→21:18)
[2018-12-06] MEDS: DIOVAN PO SCH (08:27)
[2018-12-06] MEDS: NORVASC PO SCH (08:27)
[2018-12-06] MEDS: ZITHROMAX PO SCH (11:47)
[2018-12-06] MEDS: OMNICEF PO SCH ×2 (11:47→21:18)
--- NOTE | 2018-12-06 16:18 | PROGRESS NOTE ---
DATE: 12/06/2018 SUBJECTIVE: Patient notes overall he is feeling better although his notes he still has great difficulty getting out of bed. It appears though that he insisted on being discharged from rehab early and probably 2 early. PHYSICAL EXAMINATION: Vital Signs: Reviewed: Temp 97.6 degrees pulse 66, respiratory rate 18, BP 139/50. General: Patient is in no respiratory distress. He is lying in the bed. HEENT: Normocephalic. Neck: Supple. Cardiovascular: Regular rate. Chest: Clear. Abdomen: Soft. Extremities: Moves all extremities although he has generalized weakness. Neurologic: No focal changes. Skin: Warm, dry, no rashes. ASSESSMENT: 1. Severe hypoglycemia. Improved. 2. Adult failure to thrive with generalized weakness. 3. Diabetes. 4. Hyperlipidemia. 5. Hypertension. 6. Frequent falls. PLAN: We will continue patient in hospital, get physical therapy involved. Certainly expect that he may require going back to rehab prior to discharge. We will continue antibiotics and follow. cc: Kyler Ybarra MD
[2018-12-06] MEDS: ZOCOR PO SCH (21:18)
[2018-12-06] MEDS: PERCOCET-5 PO PRN (21:25)
[2018-12-07 05:50] LABS: BASO# 0.01 X1000 (0.0-0.2); BASO% 0.3 % (0.0-0.8); EOS# 0.11 X1000 (0.0-0.7); HEMATOCRIT 28.9 % (42.0-52.0); HEMOGLOBIN 9.6 g/dL (14.0-18.0); IMM GRAN# 0.04 X1000 (0.0-0.04); IMM GRAN% 1.1 % (0.0-0.5); LYMPH# 0.67 X1000 (1.2-3.4); LYMPH% 18.6 % (20.5-51.1); MCH 30.9 PG (27-31); MCHC 33.2 g/dL (33-37); MCV 92.9 FL (81-99); MONO# 0.52 X1000 (0.11-0.59); MONO% 14.4 % (1.7-9.3); MPV 10.1 FL (7.4-10.4); NEUT# 2.26 X1000 (1.4-6.5); NEUT% 62.6 % (42.2-75.2); PLT 188 X1000 (130-400); RBC 3.11 XMIL (4.7-6.1); RDW 13.3 % (11.5-14.5); WBC 3.61 X1000 (4.8-10.8)
[2018-12-07] MEDS: SYNTHROID PO SCH (06:15)
[2018-12-07] MEDS: NORVASC PO SCH ×2 (08:27→09:48)
[2018-12-07] MEDS: DIOVAN PO SCH (08:28)
[2018-12-07] MEDS: ZITHROMAX PO SCH (08:29)
[2018-12-07] MEDS: OMNICEF PO SCH ×2 (08:29→20:09)
[2018-12-07] MEDS: FLOMAX PO SCH ×2 (08:29→20:08)
[2018-12-07] MEDS: LYRICA PO SCH ×2 (08:29→20:09)
[2018-12-07] MEDS ORDERED: DIOVAN PO PRN (09:23)
[2018-12-07] MEDS: ZOCOR PO SCH (20:09)
[2018-12-07] MEDS: PERCOCET-5 PO PRN (20:09)
--- NOTE | 2018-12-07 21:32 | PROGRESS NOTE ---
DATE: 12/07/2018 SUBJECTIVE: The patient has no new complaints. He is still having difficulty getting out of bed, still very tired and fatigued. He has little movement of his lower extremities due to weakness. OBJECTIVE: Temperature 98 degrees, pulse 77, respiratory rate 18, BP 175/64.General: The patient is awake. He is in no distress. He is alert and oriented. HEENT: Normocephalic. Neck supple. Cardiovascular: Regular rate. Chest clear. Abdomen soft, nondistended. Extremities: Moves all extremities, although with generalized weakness. Neurologic: No changes. ASSESSMENT: 1. Hypoglycemia with diabetes. Currently blood sugars are improved. We have held his glyburide. 2. Right middle lobe pneumonia. 3. Generalized weakness. 4. Hypothyroidism. 5. Hypertension. 6. Decubitus ulcers. We will continue with wound therapy. PLAN: We will continue physical therapy and will follow. cc: Kyler Ybarra MD
[2018-12-08] MEDS: SYNTHROID PO SCH (06:30)
[2018-12-08] MEDS: OMNICEF PO SCH ×2 (09:43→21:40)
[2018-12-08] MEDS: ONGLYZA PO SCH (09:43)
[2018-12-08] MEDS: LYRICA PO SCH ×2 (09:43→21:40)
[2018-12-08] MEDS: FLOMAX PO SCH ×2 (09:43→21:40)
[2018-12-08] MEDS: ZITHROMAX PO SCH (09:43)
[2018-12-08] MEDS: NORVASC PO SCH (09:43)
[2018-12-08] MEDS: ZOCOR PO SCH (21:40)
--- NOTE | 2018-12-08 22:02 | PROGRESS NOTE ---
DATE: 12/08/2018 SUBJECTIVE: The patient is without any new complaints medically. States he is doing okay. States he is still very tired and fatigued. He is unable to get out of bed without max assistance. OBJECTIVE: Vital Signs:: Temperature 98, pulse 76, respiratory 18, BP 132/51. General: Patient is awake, alert, very pleasant. He is in no respiratory distress. HEENT: Normocephalic. Neck: Supple. Cardiovascular: Regular rate. Chest: Clear. Abdomen: Soft. Extremities: Moves all extremities. Neurologic: No changes. ASSESSMENT: 1. Hypoglycemia. Continues to improve. We are going to decrease his Accu-Cheks. 2. Type 2 diabetes. 3. Right middle lobe pneumonia. 4. Adult failure to thrive. 5. Hypertension. 6. Decubitus ulcers, bilateral heels and sacral area. PLAN: We will continue wound therapy. Continue physical therapy, and will follow. cc: Kyler Ybarra MD
[2018-12-09] MEDS: SYNTHROID PO SCH (06:14)
[2018-12-09] MEDS: ZITHROMAX PO SCH (08:52)
[2018-12-09] MEDS: OMNICEF PO SCH ×2 (08:53→20:54)
[2018-12-09] MEDS: ONGLYZA PO SCH (08:53)
[2018-12-09] MEDS: FLOMAX PO SCH ×2 (08:54→20:55)
[2018-12-09] MEDS: NORVASC PO SCH (08:54)
[2018-12-09] MEDS: LYRICA PO SCH ×2 (08:54→20:55)
--- NOTE | 2018-12-09 19:10 | PROGRESS NOTE ---
DATE: 12/09/2018 SUBJECTIVE: The patient's notes that he has been having some diarrhea. She denies any fevers or chills. Denies cough, congestion. Denies any blood in his stool. OBJECTIVE: Temperature 97.7, pulse 67, respiratory rate 18, BP 125/50.General: Patient is awake. Currently, he is in no distress. He is an elderly-appearing, chronically-ill male, who is in no respiratory distress. Very pleasant to talk with. HEENT: Normocephalic. Neck: Supple. Cardiovascular: Regular rate. Chest: Clear, nonlabored. Abdomen: Soft. Extremities: Moves all extremities. Neurologic: No changes. ASSESSMENT: 1. Severe hypoglycemia as noted on admission. Currently, that has improved. 2. Diabetes. 3. Right middle lobe pneumonia. 4. Adult failure to thrive. 5. History of bladder cancer with chronic indwelling Long. He has had his Long catheter in for approximately 2 months. He has been too ill to make it back to Urology to attempt to get this removed. 6. Decubitus on his right lateral heel and sacral area. PLAN: Will continue the patient in the hospital, continue physical therapy. Further orders as needed. Hopefully, he will be able to discharge home tomorrow with hospice. cc: Kyler Ybarra MD
[2018-12-09] MEDS: ZOCOR PO SCH (20:55)
[2018-12-09] MEDS: PERCOCET-5 PO PRN (23:01)
[2018-12-10] MEDS: SYNTHROID PO SCH (06:19)
[2018-12-10] MEDS: ZITHROMAX PO SCH (09:38)
[2018-12-10] MEDS: ONGLYZA PO SCH (09:38)
[2018-12-10] MEDS: FLOMAX PO SCH (09:38)
[2018-12-10] MEDS: OMNICEF PO SCH (09:38)
[2018-12-10] MEDS: LYRICA PO SCH (09:38)
[2018-12-10] MEDS: NORVASC PO SCH (09:38)
[2018-12-10 11:21] VITALS: BP 128/53
--- NOTE | 2018-12-10 13:24 | DISCHARGE SUMMARY ---
ADMISSION DATE: 12/05/2018 DISCHARGE DATE: 12/10/2018 DISCHARGE DIAGNOSIS: 1. Type 2 diabetes mellitus with hypoglycemia. 2. Right middle lobe pneumonia. 3. Urothelial carcinoma. 4. Hypertension. 5. Hypothyroidism. 6. Decubitus ulcer on right heel and sacrum. 7. Failure to thrive. HOSPITAL COURSE: Mr. Khan is an 83-year-old gentleman, who was admitted to the hospital through emergency room on 12/04/2018 after he presented there with altered mental status. He was noted to have hypoglycemia after which he received IV D50 and D5W with which his condition improved. He was also noted to have right middle lobe pneumonia for which he was given antibiotics including Zosyn intravenously. His condition has since improved but he is having some weight loss recently and has failure to thrive. He also has been diagnosed with having urothelial carcinoma and has a chronic indwelling Long catheter for the past 2 months but has not been able to be taken out since he has not followed Urology because of his poor physical condition. He has not been able to get out of bed and has been bedbound for the past 2 months. His other medical conditions are currently stable, although, he does have decubitus ulcer on his right heel and sacrum, which are also chronic. Dr. Ybarra had a discussion with the patient and they agreed to be discharged on hospice. Hospice already were consulted and they have delivered a hospital bed to patient's home and he is ready to be discharged today. I had a discussion this morning with the patient and his and they agree to be discharged on hospice. DISCHARGE MEDICATIONS: 1. Amlodipine 5 mg orally once daily. 2. Levothyroxine 50 mcg orally once daily. 3. Lyrica 75 mg orally twice daily. 4. Percocet 5 mg orally twice daily for chronic pain. 5. Onglyza 5 mg orally once daily. 6. Simvastatin 40 mg orally once daily at bedtime. 7. Tamsulosin 0.4 mg orally twice daily. 8. Valsartan 320 mg orally once daily. 9. Azithromycin 250 mg orally once daily for 5 days. 10.Cefdinir 300 mg orally twice daily for 7 days. FOLLOWUP: The patient is advised to follow up with Urology within 1-2 weeks and follow up with the primary care in 1 week. cc: Luli Tejada MD
== END 2018-12-10 14:45 | disposition hospice, home (50) | DRG 637 ==
LOC: P.ED 17:51 → SUATTDRO 12-05 → P.MEDSURG 12-05
PROVIDERS: ATTEND Internal Medicine